=== PATIENT | male | born 1990 | race Caucasian/White ===

== ENCOUNTER 2023-02-17 01:06 | Emergency (ER) | payer MEDICAID, OTHER ==
[~2023-02-17] VITALS: Ht 177.8 cm; Wt 76.5 kg
[2023-02-17 01:39] LABS: BASOPHILS % 0.3 % (0.0-2.0); EOSINOPHILS % 4.4 % (0.0-5.0); HEMATOCRIT. 42.5 % (42.0-52.0); HEMOGLOBIN. 14.5 g/dL (14.0-18.0); MEAN CORPUSCULAR HEMOGLOBIN 28.5 pg (28.0-32.0); MEAN CORPUSCULAR VOLUME 83.3 fL (80.0-94.0); MEAN PLATELET VOLUME 7.3 fl (7.4-10.4); MONOCYTES % 6.8 % (2.0-8.0); NEUTROPHILS % 52.5 % (40.0-76.0); PLATELET 250 x1000/uL (130-400); RED BLOOD CELL COUNT 5.11 mill/uL (4.7-6.1); RED CELL DISTRIBUTION WIDTH 13.3 % (11.6-14.6)
[2023-02-17 01:45] LABS: CHLORIDE 106 mEq/L (98-107)
[2023-02-17] MEDS ORDERED: MAGNESIUM/ALUMINUM HYDROXIDE/SIMETHICONE 30ML UDC PO ONE (01:45)
[2023-02-17] MEDS ORDERED: ONDANSETRON 4MG ODT PO ONE (01:45)
[2023-02-17] MEDS ORDERED: VISCOUS LIDOCAINE 2% 15 ML UDC MM ONE (01:45)
[2023-02-17 02:02] LABS: CLARITY URINE CLEAR (CLEAR); COLOR URINE YELLOW (YELLOW); KETONES URINE NEGATIVE (NEGATIVE); LEUKOCYTE ESTERASE URINE NEGATIVE (NEGATIVE); NITRITE URINE NEGATIVE (NEGATIVE); OCCULT BLOOD URINE NEGATIVE (NEGATIVE); PROTEIN URINE TRACE (NEGATIVE); SPECIFIC GRAVITY URINE 1.028 (1.005-1.030)
[2023-02-17] MEDS ORDERED: KETOROLAC 60MG/2ML VIAL IM ONE (03:15)
[2023-02-17] MEDS ORDERED: MORPHINE SULFATE 2 MG/ML CPJ (NOT FOR IM USE) IV ONE (04:00)
[2023-02-17] MEDS ORDERED: T3 PO ×2 (04:05→04:08)
[2023-02-17] MEDS ORDERED: ONDA4TAB50 MT (04:08)
[2023-02-17 04:24] VITALS: BP 150/94
== END 2023-02-17 04:26 | disposition home or self-care (01) ==
LOC: ER 01:06
DX: R16.2 Hepatomegaly with splenomegaly, not elsewhere classified (principal)
CPT/HCPCS: 36415; 76700; 80053; 80329; 81003; 83690; 85025; 96372; 99285; J1885; Q0162; Z7610